=== PATIENT | female | born 1950 | race Caucasian/White ===

== ENCOUNTER → 2016-08-30 | Outpatient (CLI) | payer MEDICARE, BC ==
[~2016-08-30] MED LIST: ACETAMINOPHEN PO; ACETAMINOPHEN500 M2 PO; ADVICOR 5001 BOTTL1 PO; ALBUTEROL17 GM INH; AMITRIPTYLINE H25 MG PO; ASPIRIN PO; ASPIRIN81 M2 PO; ATENOLOL25 MG PO; B12 SHOT INJ; BYSTOLIC5 MG PO; CERTAGEN PO; CLOBETASOL PROP15 GM TP; COLACE PO; FIBER; FLEXERIL PO; GLUCOTROL; LIPITOR20 MG PO; LOPID600 MG PO; NEURONTIN PO; NEURONTIN100 MG PO; NEXIUM PO; NIASPAN PO; NITROGYLCERIN SUBLINGUAL; PLAVIX PO; SORIATANE10 MG PO; SORIATANE25 MG; SYNTHROID; SYNTHROID PO; SYNTHROID0.1 MG PO; TOPROL XL PO; TRIBENZOR 20-51 EACH PO; ULTRAM; ULTRAM PO; UNIRETIC PO; VICODIN 5/1 TAB 5/50 PO; VICODIN PO; VITAMIN D-32000 UNI1 PO; VYTORIN 10/40 T1 TAB; WELLBUTRIN SR150 MG PO; [UNRECOGNIZED DRUG - REMARK]
--- NOTE | ~2016-08-30 | US135 ---
[facility] A Service of [facility] RADIOLOGY TEXT RESULTS PATIENT: PAULETTE VELEZ LOCATION: CNIV : 50 UNIT #: [id number] AGE: [address]: Mary Garcia MD SEX: F ORDER DR: [id number] [facility] [address] [place], [place] [address] [id number] O MR#: [id number] Acc #: [id number] NAME: PAULETTE VELEZ. : 1950 SEX: F STUDY DATE/TIME: 08/30/2016 9:10 UNIT: CNIV ROOM: STUDY DESCRIPTION: US U/L Ext Art Study Comp Scotty Attending Physician: Mary Garcia M.D. Referring Physician: Mary Garcia M.D. Ordering Physician: Mary Garcia M.D. Primary Care Physician: Thad Sneed M.D. MEDICAL IMAGING REPORT This report is preliminary unless electronic signature is present EXAM Lower extremity arterial segmental pressures. 08/30/2016 HISTORY Peripheral artery disease. FINDINGS The right brachial pressure is 125 and the left brachial is 125, left brachial pressure is 125. The right upper thigh pressure is 155, lower thigh 157, calf 145, dorsalis pedis 155, posterior tibial 157, and toes 74 for ankle to brachial index 1.26. The left upper thigh pressure is 151, lower thigh 156, calf 154, dorsalis pedis 147, posterior tibial 144, and toe 110 for ankle to brachial index of 1.18. Pulse volume recording tracings demonstrate a good amplitude signal at all levels in both legs. Doppler waveform analysis indicates a biphasic signal in the posterior tibial and dorsalis pedis arteries bilaterally. IMPRESSION Normal perfusion to both legs. Ankle to brachial index is 1.26 on the right and 1.18 on the left. Mild small vessel occlusive disease involving the right foot. Dictated by... [facility] A Service of [facility] RADIOLOGY TEXT RESULTS PATIENT: PAULETTE VELEZ LOCATION: CNIV : 50 UNIT #: [id number] AGE: [address]: Mary Garcia MD SEX: F ORDER DR: Osmin Coombs M.D. THIS IS AN ELECTRONICALLY VERIFIED REPORT Osmin Coombs M.D. at 08/31/2016 6:47 PM Oswaldo TD: 08/31/2016 10:02 JOB #: [id number] MEDICAL IMAGING REPORT COPY
== END | disposition home or self-care (01) ==
LOC: CNIV 08:50
DX: I73.9 Peripheral vascular disease, unspecified (principal)
CPT/HCPCS: 93923

== ENCOUNTER 2016-11-16 16:08 | Emergency (ER) | payer MEDICARE, BC ==
[~2016-11-16 16:08] MED LIST changes: -GLUCOTROL; -NEURONTIN100 MG PO
[2016-11-16] MEDS ORDERED: GLUCOTROL (16:15)
[2016-11-16] MEDS ORDERED: NEURONTIN100 MG PO (16:15)
== END 2016-11-16 17:01 | disposition home or self-care (01) ==
LOC: SED 16:08
DX: S16.1XXA Strain of muscle, fascia and tendon at neck level, initial encounter (principal); E11.9 Type 2 diabetes mellitus without complications; E78.5 Hyperlipidemia, unspecified; I10 Essential (primary) hypertension; J44.9 Chronic obstructive pulmonary disease, unspecified; Z98.890 Other specified postprocedural states; Z90.710 Acquired absence of both cervix and uterus; F17.210 Nicotine dependence, cigarettes, uncomplicated; Z88.0 Allergy status to penicillin; Z88.6 Allergy status to analgesic agent; Z88.8 Allergy status to other drugs, medicaments and biological substances; Z79.899 Other long term (current) drug therapy; X58.XXXA Exposure to other specified factors, initial encounter
CPT/HCPCS: 99283

== ENCOUNTER → 2017-01-15 | Outpatient (CLI) | payer MEDICARE, BC ==
[~2017-01-15] MED LIST changes: +GLUCOTROL; +NEURONTIN100 MG PO
--- NOTE | ~2017-01-15 | MY11 ---
[facility] A Service of [facility] RADIOLOGY TEXT RESULTS PATIENT: PAULETTE VELEZ LOCATION: [facility] : 50 UNIT #: [id number] AGE: [address]: Gomez Gusman MD SEX: F ORDER DR: [id number] [place] [id number] O MR#: [id number] Acc #: [id number] NAME: PAULETTE VELEZ : 1950 SEX: F STUDY DATE/TIME: 01/15/2017 13:53 UNIT: [facility] ROOM: STUDY DESCRIPTION: MY Mammogram Screening Dig Scotty Attending Physician: Gomez Gusman M.D. Referring Physician: Gomez Gusman M.D. Ordering Physician: Gomez Gusman M.D. Primary Care Physician: Gomez Gusamn M.D. MEDICAL IMAGING REPORT This report is preliminary unless electronic signature is present. EXAM Digital screening mammogram, 01/15/2017 HISTORY 66-year-old woman, no risk elevation, annual screen. Comparison mammograms date to 11/14/2007, with most recent 06/21/2015. FINDINGS Digital imaging of each breast was completed utilizing screening protocol. Review includes FDA-approved CAD device. Breast parenchyma is extremely dense with a generalized nodular parenchymal pattern bilaterally. Subareolar duct ectasia is present in each breast. I see no developing mass. There are no suspicious microcalcifications and no architectural deformity. IMPRESSION Benign mammogram. Extremely dense breast parenchyma again noted. Annual screening recommended. Patients over the age of 40 are entered into a reminder system with target due date for the next mammogram. A result letter will also be sent to the patient. BIRADS: 2 Benign Finding Dictated by... Julio Castillo M.D. THIS IS AN ELECTRONICALLY VERIFIED REPORT Julio Castillo M.D. at 01/16/2017 8:05 AM JBB/psc [facility] A Service of [facility] RADIOLOGY TEXT RESULTS PATIENT: [id number] [birth year] UNIT #: [id number] AGE: [address]: Gomez Gusman MD SEX: F ORDER DR: TD: 01/15/2017 22:52 JOB #: [id number] MEDICAL IMAGING REPORT Page 1 of 1
== END | disposition home or self-care (01) ==
LOC: SMAM 13:07
DX: Z12.31 Encounter for screening mammogram for malignant neoplasm of breast (principal)
CPT/HCPCS: G0202